=== PATIENT | male | born 1955 | race Caucasian/White ===

== ENCOUNTER → 2017-06-01 | Outpatient (CLI) | payer BC ==
[2017-06-01 13:58] LABS: BASOPHILS # (AUTO) 0.1 10^3/uL (0.0-0.1); BASOPHILS % (AUTO) 0.9 %; EOSINOPHILS # (AUTO) 0.2 10^3/uL (0.0-0.7); EOSINOPHILS % (AUTO) 2.4 %; HCT - HEMATOCRIT 43.2 % (42.0-52.0); HGB - HEMOGLOBIN 14.3 g/dL (14.0-18.0); LYMPHOCYTES # (AUTO) 1.8 10^3/uL (1.5-3.5); LYMPHOCYTES % (AUTO) 22.2 %; MEAN CORPUSCULAR VOLUME 93.8 fL (80.0-94.0); MEAN PLATELET VOLUME 9.6 fL (7.4-11.4); MONOCYTES # (AUTO) 0.7 10^3/uL (0.0-1.0); MONOCYTES % (AUTO) 8.4 %; NEUTROPHILS # (AUTO) 5.3 10^3/uL (1.5-6.6); NEUTROPHILS % (AUTO) 66.1 %; NUCLEATED RED BLOOD CELLS AUTO 0.1 /100WBC; RED CELL DISTRIBUTION WIDTH 13.9 % (12.0-15.0)
[2017-06-01 14:17] LABS: ALBUMIN/GLOBULIN RATIO 1.4 (1.0-2.2); BILIRUBIN,TOTAL 0.6 mg/dL (0.2-1.0); BUN - BLOOD UREA NITROGEN 24 mg/dL (6-20); CALCIUM 9.6 mg/dL (8.5-10.3); CARBON DIOXIDE - CO2 28 mmol/L (21-32); CHLORIDE 101 mmol/L (101-111); CHOL/HDL RATIO 3.1 (<5.0); CHOLESTEROL 168 mg/dL; GFR - MDRD 76 (>89); GLUCOSE 108 mg/dL (70-100); HDL CHOLESTEROL 55 mg/dL; LDL/HDL RATIO 1.5 (<3.6); POTASSIUM 4.5 mmol/L (3.5-5.0); SODIUM 138 mmol/L (135-145); TOTAL PROTEIN 7.8 g/dL (6.7-8.2); TRIGLYCERIDES 139 mg/dL; VLDL CHOLESTEROL 28 mg/dL
== END ==
LOC: LAB.WCP 08:07
PROVIDERS: ATTEND Family Medicine
DX: I10 Essential (primary) hypertension (principal); E78.5 Hyperlipidemia, unspecified; M10.00 Idiopathic gout, unspecified site
CPT/HCPCS: 36415; 80053; 80061; 84443; 85025

== ENCOUNTER 2017-08-20 07:12 | Emergency (ER) | payer OTHER, BC ==
[2017-08-20 07:24] VITALS: BP 140/90
[2017-08-20] MEDS ORDERED: LIDOCAINE 1% 2 ML VIAL ONE (07:33)
--- NOTE | 2017-08-20 07:52 | ED Physician Documentation ---
PD HPI UPPER EXT INJURY - Stated complaint Stated Complaint: RT HAND LAC - Chief complaint Chief Complaint: Laceration - History obtained from History obtained from: Patient - History of Present Illness Location: Right, Hand Type of injury: Blunt / blow Where injury occurred: Work Timing - onset: Today Timing - duration: Minutes Timing - details: Abrupt onset, Still present Improved by: Rest, Immobilization Worsened by: Moving, Palpating Associated symptoms: No: Weakness, Numbness, Tingling Contributing factors: No: Anticoagulated Similar symptoms before: Diagnosis (laceration) Recently seen: Not recently seen - Additonal information Additional information: 62-year-old male with history of hypertension was at work this morning moving a lawnmower on a display when the handle of the lawn more caught his right thumb between the handle and a bar. She has a flap laceration over the dorsal aspect of the right proximal thumb. He has normal sensation distally. He has not been sick recently. Review of Systems Constitutional: denies: Fever Nose: denies: Congestion Throat: denies: Sore throat Respiratory: denies: Cough GI: denies: Vomiting Skin: reports: Laceration (s) PD PAST MEDICAL HISTORY - Past Medical History Past Medical History: Yes Cardiovascular: Hypertension, High cholesterol Musculoskeletal: Gout - Past Surgical History Past Surgical History: No - Present Medications Home Medications: Ambulatory Orders Medication Instructions Recorded Confirmed Allopurinol 0 mg DAILY 08/20/17 08/20/17 Cholesterol Med 0 mg DAILY 08/20/17 Lisinopril 0 mg PO DAILY 08/20/17 08/20/17 - Allergies Allergies/Adverse Reactions: Allergies Allergy/AdvReac Type Severity Reaction Status Date / Time No Known Drug Allergies Allergy Verified 08/20/17 07:24 - Social History Does the pt smoke?: No Smoking Status: Never smoker Does the pt drink ETOH?: Yes Substance Use and Type: Marijuana - Immunizations Immunizations are current?: Yes PD ED PE NORMAL - Vitals Vital signs reviewed: Yes (Hypertensive) - General General: No acute distress, Well developed/nourished - HEENT HEENT: Atraumatic, PERRL - Respiratory Respiratory: No respiratory distress - Derm Derm: Normal color, Warm and dry, No rash - Extremities Extremities: No deformity, Other (There is a 3.5 cm flap laceration over the dorsal aspect of the right thumb over the metacarpal. There is not involvement of deeper structures in the distal neurovascular components are intact. There is no significant contamination of the wound.) - Neuro Neuro: No motor deficit, No sensory deficit, Normal speech - Psych Psych: Normal mood, Normal affect Results - Vitals Vitals: Vital Signs - 24 hr 08/20/17 07:13 Temperature 36.2 C L Heart Rate 100 Respiratory 16 Rate Blood Pressure 140/90 H O2 Saturation 100 Oxygen O2 Source Room air Procedures - Laceration (location) Right thumb Length in cm: 3.5 Wound type: Curved, Flap Neurovascular status: Sensory intact, Motor intact, Vascular intact Anesthesia: Lidocaine 1% Wound Preparation: Hibiclens, Irrigated copiously NS, Wound explored, To the base Skin layer closure: Nylon, Interrupted, Size #-0 - enter number (4-0), Sutures - enter # (7) Other: Patient tolerated well, No complications, Neurovascular intact, Dressing applied, Tetanus UTD Complexity: Simple PD MEDICAL DECISION MAKING - ED course Complexity details: considered differential, d/w patient ED course: 62-year-old male with a right thumb laceration is sutured without incident. He is up-to-date on his immunizations. Departure - Departure Disposition: 01 Home, Self Care Clinical Impression: Laceration of right hand Qualifiers: Encounter type: initial encounter Foreign body presence: without foreign body Qualified Code(s): S61.411A - Laceration without foreign body of right hand, initial encounter Condition: Stable Instructions: ED Laceration Hand Follow-Up: Jovana Howell MD [Primary Care Provider] - Comments: Sutures out in 7-10 days.
[2017-08-20] MEDS ORDERED: BACITRACIN OINT TOP ONE (08:17)
== END 2017-08-20 08:20 | disposition home or self-care (01) ==
LOC: ED 07:12
DX: S61.011A Laceration without foreign body of right thumb without damage to nail, initial encounter (principal); W23.0XXA Caught, crushed, jammed, or pinched between moving objects, initial encounter; Y93.89 Activity, other specified; Y99.0 Civilian activity done for income or pay
CPT/HCPCS: 12002; 99282; 99283; A9270

== ENCOUNTER 2021-12-29 09:19 | Outpatient (CLI) | payer MEDICARE ==
[2021-12-29 12:52] LABS: ESTIMATED AVERAGE GLUCOSE 120 mg/dL (70-100); HEMOGLOBIN A1c% 5.8 % (4.27-6.07)
[2021-12-29 12:55] LABS: BASOPHILS # (AUTO) 0.1 10^3/uL (0.0-0.1); BASOPHILS % (AUTO) 0.9 %; EOSINOPHILS # (AUTO) 0.3 10^3/uL (0.0-0.7); EOSINOPHILS % (AUTO) 3.7 %; HCT - HEMATOCRIT 44.6 % (42.0-52.0); HGB - HEMOGLOBIN 14.7 g/dL (14.0-18.0); LYMPHOCYTES # (AUTO) 1.6 10^3/uL (1.5-3.5); LYMPHOCYTES % (AUTO) 23.6 %; MEAN CORPUSCULAR HEMOGLOBIN 31.7 pg (27.0-31.0); MEAN CORPUSCULAR VOLUME 96.3 fL (80.0-94.0); MEAN PLATELET VOLUME 11.7 fL (7.4-11.4); MONOCYTES # (AUTO) 0.6 10^3/uL (0.0-1.0); MONOCYTES % (AUTO) 9.2 %; NEUTROPHILS # (AUTO) 4.2 10^3/uL (1.5-6.6); NEUTROPHILS % (AUTO) 62.2 %; PLT - PLATELET COUNT 182 10^3/uL (130-450); RED BLOOD COUNT 4.63 10^6/uL (4.70-6.10); RED CELL DISTRIBUTION WIDTH 13.6 % (12.0-15.0); WHITE BLOOD COUNT 6.8 x10^3/uL (4.8-10.8)
[2021-12-29 13:11] LABS: ALBUMIN 4.6 g/dL (3.2-5.5); ALBUMIN/GLOBULIN RATIO 1.4 (1.0-2.2); ALKALINE PHOSPHATASE 77 IU/L (42-121); ALT ALANINE AMINOTRANSFERASE 50 IU/L (10-60); AST ASPARTATE AMINOTRANSFERASE 32 IU/L (10-42); BILIRUBIN,TOTAL 0.8 mg/dL (0.2-1.0); BUN - BLOOD UREA NITROGEN 26 mg/dL (6-20); CALCIUM 9.6 mg/dL (8.5-10.3); CARBON DIOXIDE - CO2 26 mmol/L (21-32); CHLORIDE 101 mmol/L (101-111); CHOL/HDL RATIO 4.1 (<5.0); CHOLESTEROL 215 mg/dL; CREATININE 0.9 mg/dL (0.6-1.2); GFR - MDRD 85 (>89); GLUCOSE 112 mg/dL (70-100); HDL CHOLESTEROL 53 mg/dL; LDL CHOLESTEROL,CALCULATED 117 mg/dL; LDL/HDL RATIO 2.2 (<3.6); POTASSIUM 4.1 mmol/L (3.5-5.0); SODIUM 136 mmol/L (135-145); TRIGLYCERIDES 225 mg/dL; VLDL CHOLESTEROL 45 mg/dL
[2021-12-29 14:27] LABS: THYROID STIMULATING HORMONE 1.83 uIU/mL (0.34-5.60)
== END 2021-12-29 09:20 | disposition home or self-care (01) ==
LOC: LAB.N 09:19
PROVIDERS: ATTEND Physician Assistant
DX: Z00.00 Encounter for general adult medical examination without abnormal findings (principal); I10 Essential (primary) hypertension; E78.5 Hyperlipidemia, unspecified
CPT/HCPCS: 36415; 80053; 80061; 83036; 83721; 84153; 84443; 85025

== ENCOUNTER 2023-09-21 07:25 | Outpatient (CLI) | payer MEDICARE ==
[2023-09-21 12:54] LABS: CALCIUM 10.1 mg/dL (8.5-10.3); CREATININE 0.8 mg/dL (0.6-1.3); POTASSIUM 4.3 mmol/L (3.5-4.5)
== END 2023-09-21 07:26 | disposition home or self-care (01) ==
LOC: LAB.N 07:25
PROVIDERS: ATTEND Physician Assistant
DX: K57.20 Diverticulitis of large intestine with perforation and abscess without bleeding (principal)
CPT/HCPCS: 36415; 80048

== ENCOUNTER 2023-11-16 07:24 | Outpatient (CLI) | payer MEDICARE ==
[2023-11-16 12:37] LABS: BASOPHILS # (AUTO) 0.1 10^3/uL (0.0-0.1); EOSINOPHILS # (AUTO) 0.3 10^3/uL (0.0-0.7); EOSINOPHILS % (AUTO) 4.2 %; HCT - HEMATOCRIT 44.1 % (42.0-52.0); HGB - HEMOGLOBIN 13.8 g/dL (14.0-18.0); LYMPHOCYTES % (AUTO) 24.1 %; MEAN CORPUSCULAR HEMOGLOBIN 29.5 pg (27.0-31.0); MEAN CORPUSCULAR HGB CONC 31.3 g/dL (32.0-36.0); MEAN CORPUSCULAR VOLUME 94.2 fL (80.0-94.0); MEAN PLATELET VOLUME 11.4 fL (7.4-11.4); MONOCYTES # (AUTO) 0.7 10^3/uL (0.0-1.0); NEUTROPHILS # (AUTO) 5.1 10^3/uL (1.5-6.6); NEUTROPHILS % (AUTO) 62.6 %; PLT - PLATELET COUNT 253 10^3/uL (130-450); RED BLOOD COUNT 4.68 10^6/uL (4.70-6.10); RED CELL DISTRIBUTION WIDTH 14.2 % (12.0-15.0); WHITE BLOOD COUNT 8.1 x10^3/uL (4.8-10.8)
[2023-11-16 13:20] LABS: CREATININE,URINE 127.3 mg/dL; MICROALBUM/CREATININE RATIO,UR 9.4 ug/mg (<30.0); MICROALBUMIN,URINE 1.2 mg/dL
[2023-11-16 13:23] LABS: ESTIMATED AVERAGE GLUCOSE 111 mg/dL (70-100); HEMOGLOBIN A1c% 5.5 % (4.27-6.07)
[2023-11-16 13:24] LABS: ALBUMIN 4.7 g/dL (3.2-5.5); ALBUMIN/GLOBULIN RATIO 1.5 (1.0-2.2); ALKALINE PHOSPHATASE 77 IU/L (42-121); ALT ALANINE AMINOTRANSFERASE 24 IU/L (10-60); AST ASPARTATE AMINOTRANSFERASE 17 IU/L (10-42); BILIRUBIN,TOTAL 0.7 mg/dL (0.2-1.0); BUN - BLOOD UREA NITROGEN 26 mg/dL (6-20); CARBON DIOXIDE - CO2 23 mmol/L (21-32); CHLORIDE 106 mmol/L (101-111); CHOL/HDL RATIO 3.7 (<5.0); CHOLESTEROL 131 mg/dL; CREATININE 0.9 mg/dL (0.6-1.3); GFR - MDRD 84 (>89); GLUCOSE 102 mg/dL (74-104); HDL CHOLESTEROL 35 mg/dL; LDL CHOLESTEROL,CALCULATED 67 mg/dL; LDL/HDL RATIO 1.9 (<3.6); POTASSIUM 4.8 mmol/L (3.5-4.5); SODIUM 138 mmol/L (135-145); TOTAL PROTEIN 7.9 g/dL (6.4-8.9); TRIGLYCERIDES 144 mg/dL (48-352); VLDL CHOLESTEROL 29 mg/dL
== END 2023-11-16 07:25 | disposition home or self-care (01) ==
LOC: LAB.N 07:24
PROVIDERS: ATTEND Physician Assistant
DX: E11.9 Type 2 diabetes mellitus without complications (principal); Z12.5 Encounter for screening for malignant neoplasm of prostate
CPT/HCPCS: 36415; 80053; 80061; 82043; 82570; 83036; 84443; 85025; G0103; 83721; 84153

== ENCOUNTER 2024-03-06 10:38 | Day surgery (SDC) | payer MEDICARE ==
--- NOTE | 2024-03-06 08:33 | HISTORY & PHYSICAL EXAMINATION ---
History - Past Medical History Cardiovascular: reports: Hypertension, High cholesterol Respiratory: reports: None Endocrine/Autoimmune: reports: Type 2 diabetes GI: reports: Diverticulitis : reports: None HEENT: reports: None Psych: reports: None Musculoskeletal: reports: None Derm: reports: Psoriasis MRSA Hx?: No - Past Surgical History Derm: reports: Skin cancer surgery Meds/Allgy - Home Medications Home Medications: Ambulatory Orders Medication Instructions Recorded Confirmed allopurinoL [Allopurinol] 300 mg PO DAILY 08/20/17 03/05/24 lisinopriL [Lisinopril] 40 mg PO DAILY 08/20/17 03/06/24 Atorvastatin Calcium 40 mg PO HS 08/19/23 03/05/24 hydroCHLOROthiazide [Hydrodiuril] 25 mg PO DAILY 03/05/24 03/06/24 metFORMIN [Glucophage] 500 mg PO BID 03/05/24 03/06/24 - Allergies Allergies/Adverse Reactions: Allergies Allergy/AdvReac Type Severity Reaction Status Date / Time No Known Drug Allergies Allergy Verified 03/05/24 12:38 Conclusion/Plan - Other Other Results/Comments: History of Present Illness: PT is here for colonoscopy consult. ...................................................................Analisa Garcia RN February 11, 2024 8:59 AM. Anand is here for colonoscopy examination. In July 2023 he was found to have sigmoid diverticulitis with an adjacent abscess which was managed with IV then oral antibiotics. His symptoms resolved and in August 2023, follow-up CS exam identified no residual abscess although a phlegmon was still present. He has remained asymptomatic since that time although he sometimes is constipated. Mallampati Score Class I: The soft palate, tonsils, anterior and posterior pillars, and the entire uvula are easily visible ASA Physical Status Classification System ASA II: A patient with mild systemic disease Allergies: Allergies Reviewed: Done No Known Allergies Social History Reviewed: Done Medications: Meds Reviewed: Done Golytely 236-22.74-6.74-5.86 gram recon soln (peg 3350-electrolytes) Take 240 ml by mouth as directed Every 15 minutes until gone metformin 500 mg tablet (metformin) 1 tablet by mouth twice a day allopurinol 300 mg tablet (allopurinol) take 1 tablet by mouth once daily atorvastatin 40 mg tablet (atorvastatin) take 1 tablet by mouth IN THE EVENING FOR CHOLESTEROL hydrochlorothiazide 25 mg tablet (hydrochlorothiazide) take 1 tablet by mouth every morning lisinopril 40 mg tablet (lisinopril) take 1 tablet by mouth once daily clobetasol 0.05% ointment (clobetasol) APPLY SPARINGLY TO AFFECTED AREA UP TO TWICE DAILY FOR UP TO 2 WEEK INTERVALS Problems: Problems Reviewed: Done Constipation (ICD-564.09) (MGW81-Q84.09) Screening for colon cancer (ICD-V76.51) (AOL78-G73.11) Acute nontraumatic kidney injury (ICD-584.9) (KTV94-Q14.9) Diabetes mellitus, type 2, controlled (ICD-250.00) (ZKW93-W70.9) Diverticulitis with diverticular abscess (ICD-562.11) (BHJ69-L42.80) Hypertriglyceridemia (ICD-272.1) (BUR69-B32.1) Hx of squamous cell carcinoma of skin (ICD-V10.83) (PKT22-W43.828) Arthritis, shoulder (ICD-716.91) (GJQ85-W15.819) Review of medications (ICD-V68.89) (IIL39-D07.89) Screening for malignant neoplasms of prostate (ICD-V76.44) (ALR80-X73.5) Neoplasm of uncertain behavior of skin (ICD-238.2) (AGF45-U38.5) Murmur, cardiac (ICD-785.2) (CCY67-C63.1) Psoriasis (ICD-696.1) (XDE78-Q08.9) Preventative health care (ICD-V70.0) (KDW42-H40.00) Lipoma, back (ICD-214.9) (KCE54-K29.1) Hearing loss (ICD-389.9) (NQK09-B23.90) Gouty arthropathy (ICD-274.00) (VHO81-D07.00) Hyperlipidemia (ICD-272.4) (HKS11-U58.5) Hypertension, benign essential (ICD-401.1) (QQT10-P14) Past Medical History: Gout HTN HLD BCC SCC psoriasis pre-DM diverticulitis with perforated absces 07/2023, nonop management Allergies: NKDA Past Surgical History: skin CA excisions ([facility]) [Family History-CCC] Risk Factors-CCC: Smoked Tobacco Use: Never smoker Smokeless Tobacco Use: Never Passive Smoke Exposure: no Alcohol Use: yes Type: wine Drinks per day: <1 Drug Use: no Review of Systems See HPI Vital Signs: Patient Profile: 69 Years Old Male Height: 72.75 inches Weight: 220 pounds BMI: 29.33 Temp: 8.3 degrees F oral Pulse rate: 87 / minute Resp: 20 per minute BP sittin / 68 Pt. in pain? no Vitals Entered By: Analisa Garcia RN (February 11, 2024 8:59 AM) Problems were reviewed with the patient during this visit. Medications were reviewed with the patient during this visit. Allergies were reviewed with the patient during this visit. No known allergies. Physical Exam General: normal appearance and healthy appearing. Head: normocephalic and atraumatic Eyes: PERRLA/EOM intact; conjunctiva and sclera clear Ears: Normal hearing Nose: Normal Mouth: Normal Neck: no masses, thyromegaly, or abnormal cervical nodes Chest Wall: no deformities or breast masses noted Lungs: clear bilaterally to A & P Heart: regular rate and rhythm, S1, S2 without murmurs, rubs, gallops, or clicks Abdomen: bowel sounds positive; abdomen soft and non-tender without masses, organomegaly, or hernias noted Msk: no deformity or scoliosis noted with normal posture and gait Pulses: pulses normal in all 4 extremities Extremities: no clubbing, cyanosis, edema, or deformity noted with normal full range of motion of all joints Neurologic: no focal deficits, normal coordination, muscle strength and tone Skin: Truncal psoriasis Psych: alert and cooperative; normal mood and affect; normal attention span and concentration Blood Pressure: Today's BP: 151/68 mmHg Impression & Recommendations: Problem # 1: Screening for colon cancer (ICD-V76.51) (LFM24-U72.11) Assessment: Screening CS exam requested after an episode of diverticulitis with associated abscess managed medically Plan: Colonoscopy examination Consent: Anand has been counseled for the procedure, it's indications, risks, benefits and expected outcome as well as alternative therapies. We specifically discussed risks associated with anesthesia and insertion of the endoscope into the large intestine which includes bleeding and injury to the colon which may require surgical intervention. Anand understands, agrees, and consents to the proposed operative strategy and requests that we proceed with the procedure as outlined in our discussion. Mahendra Gillespie MD, [facility] General Surgery Service Problem # 2: Constipation (ICD-564.09) (AYK85-L22.09) Assessment: Constipation Plan: Metamucil (or similar) daily <><><><><><> H&P Update: Patient examined, chart reviewed. No changes identified that would alter plan for colonoscopy. Mahendra Gillespie MD, [facility] General Surgery Service 03/06/2024
[2024-03-06] MEDS: LACTATED RINGERS 1,000 ML IV ONE (11:14)
--- NOTE | 2024-03-06 11:27 | ANESTHESIA ---
Pre-Anesthesia VS, & Labs - Diagnosis hx diverticulitis/screening - Procedure COLONOSCOPY Vital Signs: Temp Pulse Resp BP Pulse Ox O2 Flow Rate 36.3 C L 78 16 147/75 H 97 03/06/24 11:04 03/06/24 11:04 03/06/24 11:04 03/06/24 11:04 03/06/24 11:04 Height: 6 ft 2 in Weight (kg): 99.5 kg Body Mass Index: 28.1 BMI Classification: Overweight - NPO Last Fluid Intake: PREP AT 0820 Last Food Intake: >8HR - Lab Results Current Lab Results: Laboratory Tests 03/06/24 11:16: POC Whole Bld Glucose 91 Home Medications and Allergies Home Medications: Ambulatory Orders hydroCHLOROthiazide [Hydrodiuril] 25 mg PO DAILY 03/05/24 metFORMIN [Glucophage] 500 mg PO BID 03/05/24 allopurinoL [Allopurinol] 300 mg PO DAILY 08/20/17 lisinopriL [Lisinopril] 40 mg PO DAILY 08/20/17 Atorvastatin Calcium 40 mg PO HS 08/19/23 hydroCHLOROthiazide [Hydrodiuril] 25 mg PO DAILY 03/05/24 metFORMIN [Glucophage] 500 mg PO BID 03/05/24 Allergies/Adverse Reactions: Allergies Allergy/AdvReac Type Severity Reaction Status Date / Time No Known Drug Allergies Allergy Verified 03/05/24 12:38 Anes History & Medical History - Anesthetic History Anesthesia Complications: reports: No previous complications (DENIES HAVING ANESTHESIA OTHER THAN LOCAL) Family history of Anesthesia Complications: Denies - Medical History Cardiovascular: reports: Hypertension (LISINOPRIL AND HCTZ THIS AM), High chol esterol Pulmonary: reports: None Gastrointestinal: reports: Diverticulitis Urinary: reports: None Musculoskeletal: reports: None Endocrine/Autoimmune: reports: Type 2 diabetes (AM BS 91) Skin: reports: Psoriasis Smoking Status: Never smoker (SMOKES CANNABIS DAILY) Psychosocial: reports: Alcohol (RARE) - Surgical History Dermatologic: reports: Skin cancer surgery Results - EKG Results EKG Comparison: Reviewed EKG Exam General: Alert Dental: WNL Mouth Openin Fingerbreadth Neck Mobility: Normal Mallampati classification: II Thyromental Distance: 4-6 cm Respiratory: Lungs clear Cardiovascular: Regular rate Plan Anesthesia Type: Total IV Consent for Procedure(s) Verified and Reviewed: Yes Code Status: Attempt Resuscitation ASA classification: 2-Mild systemic disease Is this case an emergency?: No
[2024-03-06] MEDS ORDERED: PROPOFOL 500 MG/50 ML 500 MG/50 ML VIAL ONE (11:43)
[2024-03-06] MEDS ORDERED: LIDOCAINE-MPF 2% 5 ML VIAL ONE (11:43)
[2024-03-06] MEDS: LACTATED RINGERS 400 ML IV ONE (12:31)
[2024-03-06 13:05] VITALS: BP 122/68; O2SAT 98
--- NOTE | 2024-03-06 14:13 | ANESTHESIA POST OP EVALUATION ---
Anesthesia Post Eval - Post Anesthesia Eval Vitals: Last Vital Signs Temp 36.5 C 03/06/24 12:55 Pulse 78 03/06/24 12:55 Resp 16 03/06/24 12:55 BP 122/68 03/06/24 12:55 Pulse Ox 98 03/06/24 12:55 O2 Flow Rate CV Function Including HR & BP: Stable Pain Control: Satisfactory Nausea & Vomiting: Negative Mental Status: Baseline Respiratory Status: Airway Patent Hydration Status: Satisfactory Anesthesia Complications: None
== END 2024-03-06 10:39 | disposition home or self-care (01) ==
LOC: SDS 10:38
PROVIDERS: ATTEND Surgery
DX: Z12.11 Encounter for screening for malignant neoplasm of colon (principal); K57.30 Diverticulosis of large intestine without perforation or abscess without bleeding; K64.9 Unspecified hemorrhoids; Z87.19 Personal history of other diseases of the digestive system; E11.9 Type 2 diabetes mellitus without complications; Z79.84 Long term (current) use of oral hypoglycemic drugs
CPT/HCPCS: 45378; J7120

== ENCOUNTER 2024-05-19 07:05 | Outpatient (CLI) | payer MEDICARE ==
[2024-05-19 12:58] LABS: CALCIUM 10.2 mg/dL (8.5-10.3); POTASSIUM 4.8 mmol/L (3.5-4.5)
[2024-05-19 13:04] LABS: ESTIMATED AVERAGE GLUCOSE 114 mg/dL (70-100); HEMOGLOBIN A1c% 5.6 % (4.27-6.07)
== END 2024-05-19 07:06 | disposition home or self-care (01) ==
LOC: LAB.N 07:05
PROVIDERS: ATTEND Physician Assistant
DX: E11.9 Type 2 diabetes mellitus without complications (principal)
CPT/HCPCS: 36415; 80048; 83036

== ENCOUNTER 2024-07-29 14:20 | Outpatient (CLI) | payer MEDICARE ==
[2024-07-29 18:31] LABS: POTASSIUM 4.2 mmol/L (3.5-4.5)
[2024-07-29 21:36] LABS: ESTIMATED AVERAGE GLUCOSE 120 mg/dL (70-100); HEMOGLOBIN A1c% 5.8 % (4.27-6.07)
== END 2024-07-29 14:21 | disposition home or self-care (01) ==
LOC: LAB.N 14:20
PROVIDERS: ATTEND Physician Assistant
DX: E87.1 Hypo-osmolality and hyponatremia (principal); E87.5 Hyperkalemia; E11.9 Type 2 diabetes mellitus without complications
CPT/HCPCS: 36415; 80048; 83036